=== PATIENT | female | born 1975 | race Caucasian/White ===

== ENCOUNTER 2024-07-22 19:45 | Emergency (ER) | payer OTHER, SELFPAY ==
[2024-07-22 19:54] VITALS: BP 124/99; PULSE 90; RESP 16; TEMP 36.6; O2SAT 98; BMI 26.6
--- NOTE | 2024-07-22 20:04 | ED.BACK ---
HPI - Back Pain/Injury General Date Seen: 07/22/24 Chief Complaint: Back Injury/Pain Stated Complaint: Threw back out Time Seen by Provider: 07/22/24 19:49 Source: patient Mode of arrival: ambulatory Limitations: no limitations History of Present Illness HPI Narrative: Patient is a 48-year-old female with chronic low back pain radiating down her left leg presenting to emergency department for back pain. She has been going to [facility] for this back pain was told she has multiple herniated discs. She has been prescribed gabapentin and that has been helping but she ran out a few weeks ago and has not been able to get in with [facility] today. Was unable to get a further prescription. Pain was tolerable until today when seems to have gotten worse. Denies any injuries. [id number] pain control, ice/heat, icy Hot has not helped. Denies any new injuries. Denies saddle anesthesia, loss of bowel or bladder control, urinary retention. Related Data Previous Rx's ?Medication ?Instructions ?Recorded gabapentin 600 mg tablet 600 mg PO TID 7 days #21 tabs 07/22/24 Allergies Allergy/AdvReac Type Severity Reaction Status Date / Time No Known Drug Allergies Allergy Verified 10/02/22 13:41 Review of Systems Narrative: Pertinent systems reviewed and were negative unless stated in HPI PFSH PFSH Social History Smoking Status: Current every day smoker Exam Narrative: Exam Narrative: Const: Well-nourished, Well-developed, in mild distress Eyes: PERRL, no conjunctival injection, and symmetrical lids HENT: Atraumatic external nose and ears. Moist mucous membranes. MSK:Extremities w/o deformity, Normal Active ROM Skin: Warm, Dry. No rashes or lesions. Neuro: Normal Muscle tone, No focal neurological deficits. Psych: Awake, Alert, & Oriented x3. Appropriate mood and affect. Const: Vital Signs, click to edit/add: Vital Signs - 24 hr 07/22/24 19:54 Temperature 97.9 F Pulse Rate [Pulse Oximeter] 90 Respiratory Rate 16 Blood Pressure [Ri ght Upper Arm] 124/99 H Pulse Oximetry 98 Oxygen Delivery Me thod Room Air Course Vital Signs Vital signs: Initial Vital Signs Temperature 97.9 F 07/22/24 19:54 Temperature Source Temporal Artery Scan 07/22/24 19:54 Pulse Rate 90 07/22/24 19:54 Respiratory Rate 16 07/22/24 19:54 Blood Pressure 124/99 H 07/22/24 19:54 Blood Pressure Mean 107 H 07/22/24 19:54 Blood Pressure Position Standing 07/22/24 19:54 Pulse Oximetry 98 07/22/24 19:54 Oxygen Delivery Method Room Air 07/22/24 19:54 Vital Signs Temperature 97.9 F 07/22/24 19:54 Pulse Rate 90 07/22/24 19:54 Respiratory Rate 16 07/22/24 19:54 Blood Pressure 124/99 H 07/22/24 19:54 Pulse Oximetry 98 07/22/24 19:54 Oxygen Delivery Method Room Air 07/22/24 19:54 Temperature 97.9 F 07/22/24 19:54 Pulse Rate 90 07/22/24 19:54 Respiratory Rate 16 07/22/24 19:54 Blood Pressure 124/99 H 07/22/24 19:54 Pulse Oximetry 98 07/22/24 19:54 Oxygen Delivery Method Room Air 07/22/24 19:54 MDM - Back Pain/Injury MDM Narrative Medical decision making narrative: Patient is a 48-year-old female presenting for back pain. This is same pain she has been having for several months but was unable to get in with her orthopedic spine provider for a medication refill. Denies any new injuries. Due to this new imaging seems unnecessary. She is not having any red flag symptoms. I will give her some for gabapentin here and give her weeks prescription so that she can try follow-up outpatient. She is agreeable to this plan Discharge Plan Discharge Clinical Impression: Lumbar radiculopathy Instructions: Back Pain (ED) Additional Instructions: Take the gabapentin as prescribed. You will need to follow up with [facility] or a primary care provider to continue to get a longer prescriptions for the gabapentin. Return for new worsening symptoms Prescriptions: New gabapentin 600 mg tablet 600 mg PO TID 7 Days Qty: 21 0RF Follow Up/Referrals: Shasha Gonzales MD [Primary Care Provider] - Stand Alone Forms: [facility] Info Instructions
[2024-07-22] MEDS: OXYCODONE 5 MG TABLET PO (20:23)
[2024-07-22] MEDS: GABAPENTIN 600 MG TABLET PO (20:23)
== END 2024-07-22 20:37 | disposition home or self-care (01) ==
LOC: ED 20:18
PROVIDERS: Emergency Provider Student in an Organized Health Care Education/Training Program; PCP Family Medicine
DX: H66.93 Otitis media, unspecified, bilateral (principal)
CPT/HCPCS: 99281; 99283; A9270